=== PATIENT | male | born 2000 | race Caucasian/White ===

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

== ENCOUNTER 2022-12-09 19:12 | Emergency (ER) | payer OTHER ==
[2022-12-09] MEDS ORDERED: NA CHLORIDE 0.9% 1,000 ML ONE (20:56)
[2022-12-09] MEDS ORDERED: FAMOTIDINE 20 MG/2 ML VIAL IV ONE (20:56)
[2022-12-09] MEDS ORDERED: ONDANSETRON 4 MG/2 ML VIAL ONE ×2 (20:56→21:03)
[2022-12-09] MEDS ORDERED: KETOROLAC 30 MG/ML INJ ONE (21:03)
[2022-12-09 21:26] LABS: Absolute Lymphocytes (CBC) 2.1 K/uL (0.7-4.9); Hematocrit 42.6 % (39.6-49.0); Lymphocytes % 36.2 % (15.3-44.8); MCV 88.7 fL (80-100); MPV 9.2 fL (7.6-11.3); RBC Red Blood Cell Count 4.81 M/uL (4.33-5.43)
[2022-12-09 21:37] LABS: Potassium 3.7 mEq/L (3.5-5.1)
--- NOTE | 2022-12-09 22:38 | RAD REPORT ---
EXAM DESCRIPTION: CTAbdomen Pelvis W Contrast - 12/09/2022 10:28 pm CLINICAL HISTORY: lower abdomen pain COMPARISON: Abdomen Pelvis W Contrast dated 09/01/2020 TECHNIQUE: CT of the abdomen and pelvis was performed. All CT scans are performed using dose optimization technique as appropriate and may include automated exposure control or mA/KV adjustment according to patient size. FINDINGS: Lower chest: No acute abnormality. Liver: No acute abnormality or suspicious lesions. Nonspecific periportal edema. Biliary: No biliary ductal dilatation. Stomach: No significant focal abnormality. Duodenum: No significant focal abnormality. Pancreas: No significant abnormality. Spleen: No significant abnormality. Adrenal: No suspicious lesions. Kidney/ureter: No hydronephrosis. No renal calculi. Retroperitoneum: No retroperitoneal adenopathy. Vascular: No aneurysm. Bowel: No significant focal abnormality. Normal appendix Peritoneum: No ascites or free air. Bladder: Grossly unremarkable. Reproductive: No adnexal masses. Bones: No acute fracture. Other: n/a IMPRESSION: No acute intra-abdominal or pelvic finding. Normal appendix.
--- NOTE | 2022-12-09 23:01 | ER ---
Nurse's Notes [facility] Name: Jason Sarabia Age: 21 yrs Sex: Male : 2000 Arrival Date: 12/09/2022 Time: 19:12 Bed 5 Private MD: Diagnosis: Lower abdominal pain, unspecified;Nausea with vomiting, unspecified;Dizziness and giddiness Presentation: 12/09 19:37 Chief complaint: Patient states: ABD x 3 days and today around 1630 began vomiting at [facility] work with dizziness and headache; states is still feeling dizzy. Coronavirus screen: Vaccine status: Patient reports being unvaccinated. Ebola Screen: Patient negative for fever greater than or equal to 101.5 degrees Fahrenheit, and additional compatible Ebola Virus Disease symptoms Patient denies exposure to infectious person. Patient denies travel to an Ebola-affected area in the 21 days before illness onset. Initial Sepsis Screen: Does the patient meet any 2 criteria? No. Patient's initial sepsis screen is negative. Does the patient have a suspected source of infection? No. Patient's initial sepsis screen is negative. Risk Assessment: Do you want to hurt yourself or someone else? Patient reports no desire to harm self or others. Onset of symptoms was December 06, 2022. 19:37 Method Of Arrival: Ambulatory [facility] 19:37 Acuity: PERLITA 3 vg1 Triage Assessment: 19:40 General: Appears uncomfortable, Behavior is cooperative. Pain: Complains of pain in vg1 right lower quadrant and left lower quadrant Pain currently is 8 out of 10 on a pain scale. GI: Reports lower abdominal pain, nausea, vomiting. Historical: - Allergies: 19:40 CEPHALOSPORINS; vg1 19:40 PENICILLINS; vg1 - Home Meds: 19:40 Aspirin Oral [Active]; vg1 - PMHx: 19:40 SVT; unknown cardiac problem; vg1 - PSHx: 19:40 Cardiac Ablation; vg1 - Immunization history:: Client reports having NOT received the Covid vaccine. - Social history:: Smoking status: Patient denies any tobacco usage or history of. Screenin:27 [facility] ED Fall Risk Assessment (Adult) History of falling in the last 3 months, bp including since admission No falls in past 3 months (0 pts) Confusion or Disorientation No (0 pts) Intoxicated or Sedated No (0 pts) Impaired Gait No (0 pts) Mobility Assist Device Used No (0 pt) Altered Elimination No (0 pt) Score/Fall Risk Level 0 - 2 = Low Risk Oriented to surroundings, Maintained a safe environment, Educated pt \T\ family on fall prevention, incl call for assistance when getting out of bed. Abuse screen: Denies threats or abuse. Denies injuries from another. Nutritional screening: No deficits noted. Tuberculosis screening: No symptoms or risk factors identified. Assessment: 22:35 Reassessment: Patient and/or family updated on plan of care and expected duration. Pain vc1 level reassessed. Patient is alert, oriented x 3, equal unlabored respirations, skin warm/dry/pink. GI: Abdomen is flat, non-distended. Vital Signs: 19:37 BP 125 / 80; Pulse 64; Resp 14; Temp 98.2(O); Pulse Ox 100% on R/A; Weight 63.5 kg; vg1 Height 5 ft. 10 in. ; Pain 8/10; 21:18 BP 111 / 69 Supine; Pulse 60; Resp 16; Pulse Ox 99% on R/A; bp 21:20 BP 111 / 78 Sitting; Pulse 62; Resp 15; Pulse Ox 100% on R/A; bp 21:22 BP 113 / 75 Standing; Pulse 61; Resp 18; Pulse Ox 100% on R/A; bp 22:00 BP 112 / 76; Pulse 53; Resp 12; Pulse Ox 100% on R/A; vc1 23:14 BP 112 / 76; Pulse 58; Resp 16; Pulse Ox 100% on R/A; ll3 19:37 Body Mass Index 20.09 (63.50 kg, 177.8 cm) vg1 19:37 Pain Scale: Adult vg1 ED Course: 19:16 Patient arrived in ED. ja2 19:22 Leandro Burkett PA is PHCP. cp 19:22 Leandro Florian MD is Attending Physician. cp 19:40 Triage completed. vg1 19:40 Arm band placed on. vg1 21:09 Initial lab(s) drawn, by me, sent to lab. Inserted saline lock: 20 gauge in right ll3 antecubital area, using aseptic technique. Blood collected. 21:27 Patient has correct armband on for positive identification. Bed in low position. Call bp light in reach. Side rails up X 1. Adult w/ patient. 22:29 CT Abd/Pelvis - IV Contrast Only In Process Unspecified. EDMS 22:34 Maite Mirza, RN is Primary Nurse. vc1 23:15 No provider procedures requiring assistance completed. IV discontinued, intact, ll3 bleeding controlled, No redness/swelling at site. Pressure dressing applied. Administered Medications: 21:08 Drug: Famotidine IVP 20 mg Route: IVP; Site: right antecubital; ll3 22:44 Follow up: Response: No adverse reaction ll3 21:09 Drug: NS 0.9% IV 1000 ml Route: IV; Rate: 1 bolus; Site: right antecubital; ll3 22:44 Follow up: Response: No adverse reaction; IV Status: Completed infusion; IV Intake: ll3 1000ml 21:09 Drug: Ondansetron IVP 4 mg Route: IVP; Site: right antecubital; ll3 22:44 Follow up: Response: No adverse reaction ll3 Medication: 23:06 VIS not applicable for this client. vc1 Intake: 22:44 IV: 1000ml; Total: 1000ml. ll3 Outcome: 23:00 Discharge ordered by MD. cp 23:15 Discharged to home ambulatory, with family. ll3 23:15 Condition: stable 23:15 Discharge instructions given to patient, family, Instructed on discharge instructions, follow up and referral plans. medication usage, Demonstrated understanding of instructions, follow-up care, medications, Prescriptions given X 1. 23:15 Patient left the ED. ll3 Signatures: Dispatcher [employer] EDMS Leandro Burkett PA PA cp Peltier, Brian, RN RN bp Garcia, Victoria, RN RN 1 Teresa Strauss Lynsea, RN RN ll3 Maite Mirza, RN RN vc1
--- NOTE | 2022-12-09 23:01 | EDPHYS ---
Physician Documentation [facility] Name: Jason Sarabia Age: 21 yrs Sex: Male : 2000 Arrival Date: 12/09/2022 Time: 19:12 Bed 5 Private MD: ED Physician Leandro Florian HPI: 12/09 21:00 This 21 yrs old Male presents to ER via Ambulatory with complaints of cp Dizziness, Vomiting, Headache. 21:00 The patient presents with lightheadedness. Onset: The symptoms/episode began/occurred cp today. Context: occurred at work, occurred while the patient was working, just prior to the episode the patient experienced abdominal pain, nausea, vomiting. Associated signs and symptoms: Pertinent positives: headache, Pertinent negatives: chest pain, palpitations, shortness of breath, syncope. Severity of symptoms: in the emergency department the symptoms are unchanged despite home interventions. Patient's baseline: Neuro: alert and fully oriented, Motor: no deficits, Ambulation: walks without assistance, Speech: normal. Historical: - Allergies: 19:40 CEPHALOSPORINS; vg1 19:40 PENICILLINS; vg1 - Home Meds: 19:40 Aspirin Oral [Active]; vg1 - PMHx: 19:40 SVT; unknown cardiac problem; vg1 - PSHx: 19:40 Cardiac Ablation; vg1 - Immunization history:: Client reports having NOT received the Covid vaccine. - Social history:: Smoking status: Patient denies any tobacco usage or history of. ROS: 21:05 Constitutional: Negative for body aches, chills, fever. cp 21:05 Eyes: Negative for injury, pain, redness, and discharge. cp 21:05 ENT: Negative for drainage from ear(s), ear pain, sore throat, difficulty swallowing, difficulty handling secretions. 21:05 Neck: Negative for pain with movement, pain at rest, stiffness. 21:05 Cardiovascular: Negative for chest pain, palpitations. 21:05 Respiratory: Negative for cough, shortness of breath, wheezing. 21:05 Abdomen/GI: Positive for abdominal pain, nausea and vomiting, Negative for diarrhea, constipation. 21:05 Neuro: Positive for dizziness, Negative for headache, syncope, near syncope, weakness. 21:05 All other systems are negative. Exam: 21:10 Constitutional: The patient appears in no acute distress, alert, awake, cp non-diaphoretic, non-toxic, well developed, well nourished, uncomfortable. 21:10 Head/Face: Normocephalic, atraumatic. cp 21:10 Eyes: Periorbital structures: appear normal, Pupils: equal, round, and reactive to light and accomodation, Extraocular movements: intact throughout, Conjunctiva: normal, no exudate, no injection, Sclera: no appreciated abnormality, Lids and lashes: appear normal, bilaterally. 21:10 ENT: External ear(s): are unremarkable, Ear canal(s): are normal, clear, TM's: dullness, bilaterally, Nose: is normal, Mouth: is normal, Posterior pharynx: Airway: no evidence of obstruction, patent. 21:10 Neck: ROM/movement: is normal, is supple, without pain, no range of motions limitations, no meningismus. 21:10 Chest/axilla: Inspection: normal, Palpation: is normal, no crepitus, no tenderness. 21:10 Cardiovascular: Rate: normal, Rhythm: regular. 21:10 Respiratory: the patient does not display signs of respiratory distress, Respirations: normal, no use of accessory muscles, no retractions, labored breathing, is not present, Breath sounds: are clear throughout, no decreased breath sounds, no stridor, no wheezing. 21:10 Abdomen/GI: Inspection: abdomen appears normal, Bowel sounds: active, all quadrants, Palpation: soft, in all quadrants, mild abdominal tenderness, in the right lower quadrant and left lower quadrant, rebound tenderness, is not appreciated, involuntary guarding, is not appreciated. 21:10 Back: pain, is absent, ROM is normal. 21:10 Neuro: Orientation: to person, place \T\ time. Mentation: is normal, Cerebellar function: is grossly normal, Motor: moves all fours, strength is normal, Sensation: is normal. 21:22 ECG was reviewed by the Attending Physician. cp Vital Signs: 19:37 BP 125 / 80; Pulse 64; Resp 14; Temp 98.2(O); Pulse Ox 100% on R/A; Weight 63.5 kg; vg1 Height 5 ft. 10 in. ; Pain 8/10; 21:18 BP 111 / 69 Supine; Pulse 60; Resp 16; Pulse Ox 99% on R/A; bp 21:20 BP 111 / 78 Sitting; Pulse 62; Resp 15; Pulse Ox 100% on R/A; bp 21:22 BP 113 / 75 Standing; Pulse 61; Resp 18; Pulse Ox 100% on R/A; bp 22:00 BP 112 / 76; Pulse 53; Resp 12; Pulse Ox 100% on R/A; vc1 23:14 BP 112 / 76; Pulse 58; Resp 16; Pulse Ox 100% on R/A; ll3 19:37 Body Mass Index 20.09 (63.50 kg, 177.8 cm) vg1 19:37 Pain Scale: Adult vg1 MDM: 19:46 Patient medically screened. cp 20:00 Differential diagnosis: cardiac arrhythmia, head injury, hypovolemia, idiopathic cp dizziness, electrolyte abnormality, appendicitis, dehydration. 23:00 Data reviewed: vital signs, nurses notes, lab test result(s), EKG, radiologic studies, cp doppler, and as a result, I will discharge patient. Consideration of Admission/Observation Escalation of care including admission/observation considered. I considered the following discharge prescriptions or medication management in the emergency department Medications were administered in the Emergency Department. See MAR. Test considered but Not performed: CT: head. Counseling: I had a detailed discussion with the patient and/or guardian regarding: the historical points, exam findings, and any diagnostic results supporting the discharge/admit diagnosis, lab results, radiology results, to return to the emergency department if symptoms worsen or persist or if there are any questions or concerns that arise at home. Response to treatment: the patient's symptoms have markedly improved after treatment, patient is well hydrated. and as a result, I will discharge patient. 12/09 20:46 Order name: Basic Metabolic Panel; Complete Time: 21:53 cp 12/09 21:53 Interpretation: Normal except: ANION GAP 4.7. cp 12/09 20:46 Order name: CBC with Diff; Complete Time: 21:53 cp 12/09 20:46 Order name: Magnesium; Complete Time: 21:53 cp 12/09 20:46 Order name: CK; Complete Time: 21:53 cp 12/09 22:05 Order name: CT Abd/Pelvis - IV Contrast Only; Complete Time: 22:43 cp 12/09 22:44 Interpretation: Report reviewed. cp 12/09 20:46 Order name: EKG; Complete Time: 20:47 cp 0505 20:46 Order name: Orthostatics; Complete Time: 21:25 cp 0505 20:46 Order name: Cardiac monitoring; Complete Time: 21: cp 12/09 20:46 Order name: EKG - Nurse/Tech; Complete Time: 21:25 cp 0505 20:46 Order name: IV Saline Lock; Complete Time: 21:09 cp 12/09 20:46 Order name: Labs collected and sent; Complete Time: 21: cp 05 20:46 Order name: O2 Per Protocol; Complete Time: 20:53 cp 0505 20:46 Order name: O2 Sat Monitoring; Complete Time: 20:53 cp 05 22:44 Order name: PO challenge; Complete Time: 22:49 cp EC:22 Rate is 63 beats/min. Rhythm is regular. [place] interval is normal. QRS interval is normal. cp QT interval is normal. T waves are Inverted in lead aVR. Interpreted by me. Reviewed by me. Administered Medications: 21:08 Drug: Famotidine IVP 20 mg Route: IVP; Site: right antecubital; ll3 22:44 Follow up: Response: No adverse reaction ll3 21:09 Drug: NS 0.9% IV 1000 ml Route: IV; Rate: 1 bolus; Site: right antecubital; ll3 22:44 Follow up: Response: No adverse reaction; IV Status: Completed infusion; IV Intake: ll3 1000ml 21:09 Drug: Ondansetron IVP 4 mg Route: IVP; Site: right antecubital; ll3 22:44 Follow up: Response: No adverse reaction ll3 Disposition Summary: 12/09/22 23:00 Discharge Ordered Location: Home cp Problem: new cp Symptoms: have improved cp Condition: Stable cp Diagnosis - Lower abdominal pain, unspecified cp - Nausea with vomiting, unspecified cp - Dizziness and giddiness cp Followup: cp - With: Private Physician - When: 2 - 3 days - Reason: Recheck today's complaints Discharge Instructions: - Discharge Summary Sheet cp - Abdominal Pain, Adult cp - Dizziness cp - Nausea and Vomiting, Adult cp Forms: - Medication Reconciliation Form cp - Thank You Letter cp - Antibiotic Education cp - Prescription Opioid Use cp - Work release form ll3 Prescriptions: - Zofran 4 mg Oral Tablet - take 1 tablet by ORAL route every 12 hours As needed; 20 tablet; Refills: 0, cp Product Selection Permitted Signatures: Dispatcher [employer] [facility] Leandro Burkett PA PA cp Garcia, Victoria RN RN vg1 Tone Chew RN RN ll3 Corrections: (The following items were deleted from the chart) 20:41 20:16 Urinalysis W/Microscopic+U.LAB.BRZ ordered. [facility] 20:42 20:16 Test, Urine+UC.LAB.BRZ ordered. [facility] 12/10 18:30 19:28 Data reviewed: vital signs, nurses notes, lab test result(s), EKG, radiologic cp studies, doppler, and as a result, I will discharge patient, : 19:28 Consideration of Admission/Observation Escalation of care including cp admission/observation considered. : 19:28 I considered the following discharge prescriptions or medication management in cp the emergency department Medications were administered in the Emergency Department. See MAR 19:28 Test considered but Not performed: CT: head. [facility] :30 19:28 Counseling: I had a detailed discussion with the patient and/or guardian cp regarding: the historical points, exam findings, and any diagnostic results supporting the discharge/admit diagnosis, lab results, radiology results, to return to the emergency department if symptoms worsen or persist or if there are any questions or concerns that arise at home, :30 19:28 Response to treatment: the patient's symptoms have markedly improved after cp treatment, patient is well hydrated. and as a result, I will discharge patient,
[2022-12-09 23:31] VITALS: TEMP 98.2
[2022-12-09 23:42] VITALS: O2SAT 100
[2022-12-09 23:44] VITALS: BP 112/76
== END 2022-12-09 23:15 | disposition home or self-care (01) ==
LOC: ER 19:12
DX: R10.30 Lower abdominal pain, unspecified (principal); R11.2 Nausea with vomiting, unspecified; R42 Dizziness and giddiness; Z79.82 Long term (current) use of aspirin; Z88.0 Allergy status to penicillin; Z88.3 Allergy status to other anti-infective agents
CPT/HCPCS: 96361; 85025; 80048; 36415; 83735; 82550; 74177; 96375; 96374; 99284; Q9967; J2405; J7030